=== PATIENT | female | born 1975 | race Hispanic/Latino ===

== ENCOUNTER → 2018-10-12 | Outpatient (CLI) | payer MEDICAID | END | disposition home or self-care (01) | LOC: SLP 19:50 | PROVIDERS: ATTEND Internal Medicine | DX: G47.33 Obstructive sleep apnea (adult) (pediatric) (principal) | CPT/HCPCS: 95810 ==

== ENCOUNTER → 2018-11-23 | Outpatient (CLI) | payer MEDICAID ==
--- NOTE | 2018-11-23 23:37 | NUR ---
PATIENT STATES SHE FEELS SEVERE ANXIETY WITH CPAP 4 CM H2O AND NASAL PILLOWS ON. PATIENT REMAINS STABLE AT THIS TIME AND STATES SHE WILL TRY TO CONTINUE WITH SLEEP STUDY AT THIS TIME. PATIENT REQUESTS TO HAVE THE OPTION TO CONNECT AND DISCONNECT CIRCUIT FROM NASAL PILLOW TO WEAR TOLERATED UNTIL SHE IS ABLE TO FALL ASLEEP WITH CPAP ON. PATIENT NOTIFIED IN EVENT OF ANXIETY NOT LETTING HER SLEEP WITH CPAP ON DURING THE NIGHT, SLEEP STUDY CAN BE RESCHEDULED WITH ADDED SLEEPING MEDICATION TO HELP ANXIETY. PATIENT STATES SHE IS WILLING TO CONTINUE WITH SLEEP STUDY AT THIS TIME AT HER PACE AND WILL NOTIFY RT SHOULD SHE WANTS TO STOP TESTING AT A LATER TIME. Addendum: 11/24/18 at 0014 by JIN GALLARDO Amended: Links added.
== END | disposition home or self-care (01) ==
LOC: SLP 20:22
PROVIDERS: ATTEND Internal Medicine
DX: G47.33 Obstructive sleep apnea (adult) (pediatric) (principal)
CPT/HCPCS: 95811

== ENCOUNTER → 2021-01-08 | Outpatient (CLI) | payer MEDICAID, MEDICARE ==
[~2021-01-08] VITALS: Ht 27.9 cm; Wt 97.2 kg
== END | disposition home or self-care (01) ==
LOC: DTH 12:13
PROVIDERS: ATTEND Surgery
DX: E11.9 Type 2 diabetes mellitus without complications (principal); E78.00 Pure hypercholesterolemia, unspecified; I10 Essential (primary) hypertension
CPT/HCPCS: 97802

== ENCOUNTER → 2021-06-04 | Outpatient (CLI) | payer OTHER ==
[~2021-06-04] VITALS: Ht 27.9 cm; Wt 96.7 kg
== END | disposition home or self-care (01) ==
LOC: DTH 12:24
PROVIDERS: ATTEND Surgery
DX: E66.01 Morbid (severe) obesity due to excess calories (principal); I10 Essential (primary) hypertension; E11.9 Type 2 diabetes mellitus without complications; E78.00 Pure hypercholesterolemia, unspecified
CPT/HCPCS: 97802

== ENCOUNTER → 2021-07-25 | Outpatient (CLI) | payer OTHER | END | disposition home or self-care (01) | LOC: DTH 12:46 | PROVIDERS: ATTEND Surgery | DX: I10 Essential (primary) hypertension (principal); E78.00 Pure hypercholesterolemia, unspecified; E11.9 Type 2 diabetes mellitus without complications; E66.01 Morbid (severe) obesity due to excess calories | CPT/HCPCS: 97803 ==